=== PATIENT | female | born 1940 | race Asian ===

== ENCOUNTER → 2019-10-22 | Day surgery (SDC) | payer MEDICARE ==
[2019-10-22] VITALS (12 sets, daily range): BP systolic 123–185; BP diastolic 55–87
[~2019-10-22] MED LIST: CEFAZOLIN 1000MG PREMIX 50 ML IV ONE; FENTANYL CITRATE/PF 50MCG/ML 2ML VIAL IV ONE; FENTANYL CITRATE/PF 50MCG/ML 2ML VIAL ONE; LIDOCAINE HCL 1% 20ML VIAL (Pyxis) INJ ONE; LIDOCAINE HCL/EPINEPHRINE 1%-EPI 1:100,000 20 ML VIAL ONE; SODIUM BICARBONATE 4% (2.4MEQ) 5ML VIAL IV ONE
== END | disposition home or self-care (01) ==
LOC: RADANGIO 07:51
PROVIDERS: ATTEND Internal Medicine Hematology & Oncology
DX: C50.112 Malignant neoplasm of central portion of left female breast (principal)
CPT/HCPCS: 36561; 76937; 77001; 99152; 99153; J3490; J0690; J3010; G0500

== ENCOUNTER → 2020-02-26 | Day surgery (SDC) | payer MEDICARE ==
[2020-02-26] VITALS (7 sets, daily range): BP systolic 152–167; BP diastolic 62–86
[~2020-02-26] MED LIST changes: -CEFAZOLIN 1000MG PREMIX 50 ML IV ONE; -FENTANYL CITRATE/PF 50MCG/ML 2ML VIAL IV ONE; -FENTANYL CITRATE/PF 50MCG/ML 2ML VIAL ONE; -LIDOCAINE HCL/EPINEPHRINE 1%-EPI 1:100,000 20 ML VIAL ONE
== END | disposition home or self-care (01) ==
LOC: RAD 08:35
PROVIDERS: ATTEND Internal Medicine Hematology & Oncology
DX: Z45.2 Encounter for adjustment and management of vascular access device (principal)
CPT/HCPCS: 36573; 36590; 76937; 77001; C1725; C1769; J3490